=== PATIENT | male | born 1980 | race Caucasian/White ===

== ENCOUNTER → 2018-02-08 | Outpatient (CLI) | payer MEDICARE, MEDICAID ==
--- NOTE | 2018-02-08 21:41 | EKG REPORT ---
SEVERITY:- NORMAL ECG - SINUS RHYTHM : Confirmed by: Camelia Butcher MD 08-Feb-2018 21:41:01
== END ==
LOC: OD 10:26
PROVIDERS: ATTEND Physician Assistant
DX: Z79.891 Long term (current) use of opiate analgesic (principal); Z51.81 Encounter for therapeutic drug level monitoring; G89.4 Chronic pain syndrome
CPT/HCPCS: 93005; 93010

== ENCOUNTER → 2018-03-29 | Outpatient (CLI) | payer MEDICARE, MEDICAID ==
--- NOTE | 2018-03-29 12:56 | RADIOLOGY REPORT (SQ) ---
EXAM DESCRIPTION: CERV SP 6 OR MORE COMPLETED DATE/TIME: 03/29/2018 12:42 pm REASON FOR STUDY: CERVICAL/LUMBAR RADICULOPATHY M54.12 RADICULOPATHY, CERVICAL REGION M54.16 RADIC ULOPATHY, LUMBAR REGION COMPARISON: None. NUMBER OF VIEWS: Seven views. TECHNIQUE: AP, lateral, obliques, flexion, extension, and odontoid radiographic images acquired of t he cervical spine. LIMITATIONS: None. FINDINGS: MINERALIZATION: Normal. ALIGNMENT: Anatomic. FLEXION/EXTENSION: No instability. VERTEBRAE: Vertebral bodies of normal height. DISCS: Mild disc space narrowing C5-6 and C6-7. FORAMINA: No osteophytes or foraminal narrowing. LATERAL AND POSTERIOR ELEMENTS: Posterior decompression C4-T1. HARDWARE: Extensive hardware along the facets bilateral. No hardware failure. SOFT TISSUES: No masses or calcifications. Lung apices clear. OTHER: No other significant finding. IMPRESSION: Extensive postsurgical changes. Mild degenerative disc disease C5-6 and C6-7. NO INSTABILITY ON FLEXION/EXTENSION. TECHNICAL DOCUMENTATION: JOB ID: [id number]- All Rights Reserved Reading location - IP/workstation name: [email or web address]
--- NOTE | 2018-03-29 12:59 | RADIOLOGY REPORT (SQ) ---
EXAM DESCRIPTION: L SPINE W/FLEX/EXT COMPLETED DATE/TIME: 03/29/2018 12:42 pm REASON FOR STUDY: CERVICAL/LUMBAR RADICULOPATHY M54.12 RADICULOPATHY, CERVICAL REGION M54.16 RADIC ULOPATHY, LUMBAR REGION COMPARISON: None. NUMBER OF VIEWS: Seven views. TECHNIQUE: AP, lateral, obliques, flexion, extension, and sacral radiographic images acquired. LIMITATIONS: None. FINDINGS: MINERALIZATION: Normal. SEGMENTATION: Normal. No transitional anatomy. ALIGNMENT: Normal. FLEXION/EXTENSION: No instability. VERTEBRAE: Maintained height. No fracture or worrisome bone lesion. DISCS: Preserved height. No significant osteophytes or end plate irregularity. POSTERIOR ELEMENTS: Posterior decompression L4 and L5. HARDWARE: Pedicle screws and plates L4-S1. Disc prostheses L4-5 and L5-S1. PARASPINAL SOFT TISSUES: Normal. PELVIS: Intact as visualized. No fractures or worrisome bone lesions. SI joints intact. OTHER: No other significant finding. IMPRESSION: Surgical changes. NO INSTABILITY ON FLEXION/EXTENSION. TECHNICAL DOCUMENTATION: JOB ID: [id number]- All Rights Reserved Reading location - IP/workstation name: [email or web address]
--- NOTE | 2018-03-29 13:49 | RADIOLOGY REPORT (SQ) ---
EXAM DESCRIPTION: MRI CERVICAL SPINE COMBO COMPLETED DATE/TIME: 03/29/2018 12:12 pm REASON FOR STUDY: CERVICAL RADICULOPATHY, LUMBAR RADICULOPATHY M54.12 RADICULOPATHY, CERVICAL REGIO N M54.16 RADICULOPATHY, LUMBAR REGION COMPARISON: Plain radiographs TECHNIQUE: Sagittal and Axial imaging includes T1, T2, STIR and gradient echo sequences. T1 post dylan olinium sequences. CONTRAST TYPE AND DOSE: 20 mL Dotarem. RENAL FUNCTION: None required. The patient is less than 50 years old. LIMITATIONS: Olguin from metal hardware. FINDINGS: ALIGNMENT: Normal. VERTEBRAE: Intact. BONE MARROW: Normal. No marrow replacement or reactive changes. DISCS: Normal. No significant abnormal signal or loss of height. HARDWARE: Extensive posterior hardware extending from C4-T1. CORD AND BASE OF BRAIN: Normal in size and signal intensity. SOFT TISSUES: No soft tissue masses. C1-C2: No significant spinal stenosis. C2-C3: No significant spinal stenosis or exit foraminal stenosis. C3-C4: Disc osteophyte complex with mild narrowing of the exit foramina. C4-C5: No significant spinal stenosis or exit foraminal stenosis. C5-C6: No significant spinal stenosis or exit foraminal stenosis. C6-C7: No significant spinal stenosis or exit foraminal stenosis. C7-T1: No significant spinal stenosis or exit foraminal stenosis. UPPER THORACIC: There are central disc protrusions at T1-T2 and T2-T3 which appear to compress the an terior thecal sac. ENHANCEMENT: No abnormal enhancement. OTHER: No other significant finding. IMPRESSION: Extensive surgical changes. Mild narrowing of the exit foramina C3-4. Central disc protrusions at T1- 2 and T2-3 incompletely image. Appear to compress the anterior theca l sac. COMMENT: None. TECHNICAL DOCUMENTATION: JOB ID: [id number] [employer]- All Rights Reserved Reading location - IP/workstation name: [email or web address]
--- NOTE | 2018-03-29 13:53 | RADIOLOGY REPORT (SQ) ---
EXAM DESCRIPTION: MRI LUMBAR SPINE COMBO COMPLETED DATE/TIME: 03/29/2018 12:12 pm REASON FOR STUDY: CERVICAL RADICULOPATHY, LUMBAR RADICULOPATHY M54.12 RADICULOPATHY, CERVICAL REGIO N M54.16 RADICULOPATHY, LUMBAR REGION COMPARISON: None. TECHNIQUE: Sagittal and Axial imaging includes T1, T1 post gadolinium, T2, STIR and gradient echo se quences. Coronal T2/HASTE imaging. CONTRAST TYPE AND DOSE: 20 mL Dotarem. RENAL FUNCTION: None required. The patient is less than 50 years old. LIMITATIONS: None. FINDINGS: VISUALIZED UPPER ABDOMEN: Limited evaluation. No acute or suspicious findings suggested. SEGMENTATION: No transitional anatomy. The lowest well-developed disc space is labeled L5-S1. ALIGNMENT: Anatomic. VERTEBRAE: Intact. No fractures. BONE MARROW: Mild reactive endplate changes L3-4. DISC SIGNAL: Loss of T2 signal L3-4. POSTERIOR ELEMENTS: Posterior decompression L4 and L5. HARDWARE: Hardware L4-5 and S1. CORD AND CONUS: Normal in size and signal intensity. Conus at the appropriate level. SOFT TISSUES: No aortic aneurysm seen. No bulky retroperitoneal adenopathy or mass. No paraspinal mas s or fluid. L1-L2: No significant spinal stenosis or exit foraminal stenosis. L2-L3: No significant spinal stenosis or exit foraminal stenosis. L3-L4: Disc bulge with fissure L3-4. Mild narrowing of the exit foramina. L4-L5: No significant spinal stenosis or exit foraminal stenosis. L5-S1: No significant spinal stenosis or exit foraminal stenosis. LOWER THORACIC: Incompletely imaged. No stenosis seen. SACRUM: Visualized upper sacrum intact. ENHANCEMENT: No abnormal enhancement. OTHER: No other significant findings. IMPRESSION: L3-4 disc bulge with mild narrowing of the exit foramina. Hardware L4-5 and L5-S1 with posterior decompression. TECHNICAL DOCUMENTATION: JOB ID: [id number] [employer]- All Rights Reserved Reading location - IP/workstation name: [email or web address]
== END ==
LOC: RAD 10:25
PROVIDERS: ATTEND Neurological Surgery
DX: M54.12 Radiculopathy, cervical region (principal); M54.16 Radiculopathy, lumbar region
CPT/HCPCS: 72156; 72158; 72052; 72114; A9576

== ENCOUNTER → 2018-10-02 | Outpatient (CLI) | payer MEDICARE, MEDICAID ==
--- NOTE | 2018-10-02 16:21 | EKG REPORT ---
SEVERITY:- NORMAL ECG - SINUS RHYTHM : Confirmed by: Kash Bray MD 02-Oct-2018 16:20:09
== END ==
LOC: OD 14:28
PROVIDERS: ATTEND Physician Assistant
DX: Z79.891 Long term (current) use of opiate analgesic (principal)
CPT/HCPCS: 93005; 93010

== ENCOUNTER 2018-11-07 12:29 | Emergency (ER) | payer MEDICARE, MEDICAID ==
--- NOTE | 2018-11-07 13:11 | ER Document Report ---
ED Medical Screen (RME) - General Chief Complaint: Back Pain Stated Complaint: BACK PAIN Time Seen by Provider: 11/07/18 13:09 Primary Care Provider: TOMMY IBARRA PA [Primary Care Provider] - Follow up as needed Mode of Arrival: Ambulatory Information source: Patient Notes: 38-year-old male presented to ED for increase in pain to his lower back. He states he has been having problems urinating and is only urinating once or twice a day now. He states he has decreased feeling in his groin and private areas. He states he has pain from just above his waist and then he has shooting pain down both legs. He states this is been going on and off for 5 years but it is worse for the last week. He states he has been feeling lightheaded and nausea for the last week which has been increasing. He states he does have a neurologist he follows up with but he just got a little frightened due to the increase in pain and decrease in sensation. He states usually he has to get an MRI and he needs value before he can get an MRI. I will order blood work and urine and x-ray in the pit area. I have greeted and performed a rapid initial assessment of this patient. A comprehensive ED assessment and evaluation of the patient, analysis of test results and completion of medical decision making process will be conducted by an additional ED providers. TRAVEL OUTSIDE OF THE [place] IN LAST 30 DAYS: No - Related Data Allergies/Adverse Reactions: Iodine and Iodide Containing Produc Allergy (Verified 11/07/18 12:31) Physical Exam - Vital signs Vitals: Temp Pulse Resp BP Pulse Ox 98.0 F 89 16 143/69 H 97 11/07/18 12:36 11/07/18 12:36 11/07/18 12:36 11/07/18 12:36 11/07/18 12:36 Course - Vital Signs Vital signs: Temp Pulse Resp BP Pulse Ox 98.0 F 89 16 143/69 H 97 11/07/18 12:36 11/07/18 12:36 11/07/18 12:36 11/07/18 12:36 11/07/18 12:36 Doctor's Discharge - Discharge Referrals: TOMMY IBARRA PA [Primary Care Provider] - Follow up as needed
[2018-11-07 14:03] LABS: ABSOLUTE BASOPHILS # (AUTO) 0.1 10^3/uL (0.0-0.2); ABSOLUTE EOSINOPHILS # (AUTO) 0.4 10^3/uL (0.0-0.6); ABSOLUTE LYMPHOCYTES (AUTO) 2.4 10^3/uL (0.5-4.7); ABSOLUTE MONOCYTES (AUTO) 0.5 10^3/uL (0.1-1.4); ABSOLUTE NEUT (AUTO) 4.9 10^3/uL (1.7-8.2); BASOPHILS % (AUTO) 1.2 % (0-2); EOSINOPHILS % (AUTO) 4.9 % (0-6); HEMATOCRIT 43.7 % (37.9-51.0); HEMOGLOBIN 14.7 g/dL (13.5-17.0); LYMPHOCYTES % (AUTO) 28.6 % (13-45); MEAN CORPUSCULAR HEMOGLOBIN 28.4 pg (27.0-33.4); MEAN CORPUSCULAR HGB CONC 33.7 g/dL (32.0-36.0); MEAN CORPUSCULAR VOLUME 84 fl (80-97); MONOCYTES % (AUTO) 6.4 % (3-13); PLATELET COUNT 259 10^3/uL (150-450); RED BLOOD COUNT 5.18 10^6/uL (4.35-5.55); RED CELL DISTRIBUTION WIDTH 14.1 % (11.5-14.0); SEGMENTED NEUTROPHILS % (AUTO) 58.9 % (42-78); TOTAL CELLS COUNTED % (AUTO) 100 %; WHITE BLOOD COUNT 8.3 10^3/uL (4.0-10.5)
[2018-11-07 14:08] LABS: APPEARANCE,URINE CLEAR; BILIRUBIN,URINE NEGATIVE (NEGATIVE); COLOR,URINE YELLOW; GLUCOSE, URINE NEGATIVE (NEGATIVE); KETONES,URINE NEGATIVE (NEGATIVE); LEUKOCYTE ESTERASE,URINE NEGATIVE (NEGATIVE); NITRITE,URINE NEGATIVE (NEGATIVE); PROTEIN,URINE NEGATIVE (NEGATIVE); URINE SPECIFIC GRAVITY 1.021; UROBILINOGEN,URINE NEGATIVE mg/dL (<2.0)
[2018-11-07 14:20] LABS: ALBUMIN 4.5 g/dL (3.5-5.0); ALKALINE PHOSPHATASE 63 U/L (38-126); ANION GAP 10 (5-19); ASPARTATE AMINO TRANSFERASE 25 U/L (17-59); BILIRUBIN,DIRECT 0.3 mg/dL (0.0-0.4); BILIRUBIN,TOTAL 0.4 mg/dL (0.2-1.3); BLOOD UREA NITROGEN 11 mg/dL (7-20); CARBON DIOXIDE 27 mmol/L (22-30); CHLORIDE 103 mmol/L (98-107); GLUCOSE 107 mg/dL (75-110); POTASSIUM 4.3 mmol/L (3.6-5.0); TOTAL PROTEIN 7.4 g/dL (6.3-8.2)
--- NOTE | 2018-11-07 14:20 | RADIOLOGY REPORT (SQ) ---
EXAM DESCRIPTION: L SPINE WHOLE COMPLETED DATE/TIME: 11/07/2018 2:12 pm REASON FOR STUDY: increase in pain COMPARISON: 03/29/2018 NUMBER OF VIEWS: Three views. TECHNIQUE: AP, lateral and sacral radiographic images acquired of the lumbar spine. LIMITATIONS: None. FINDINGS: MINERALIZATION: Normal. SEGMENTATION: Normal. No transitional anatomy. ALIGNMENT: Normal. VERTEBRAE: Maintained height. No fracture or worrisome bone lesion. DISCS: Preserved height. No significant osteophytes or end plate irregularity. POSTERIOR ELEMENTS: Pedicles and facets are intact. No pars defect or posterior arch defects. HARDWARE: There is been posterior instrumentation at L4-L5 and S1. Hardware alignment is unchanged. PARASPINAL SOFT TISSUES: Normal. PELVIS: Intact as visualized. No fractures or worrisome bone lesions. SI joints intact. OTHER: No other significant finding. IMPRESSION: Postsurgical changes. No acute findings. TECHNICAL DOCUMENTATION: JOB ID: [id number] [employer]- All Rights Reserved Reading location - IP/workstation name: [email or web address]
[2018-11-07 14:21] LABS: URINE AMPHETAMINES SCREEN NEGATIVE; URINE BARBITURATES SCREEN NEGATIVE; URINE BENZODIAZEPINES SCREEN NEGATIVE; URINE COCAINE SCREEN NEGATIVE; URINE MARIJUANA (THC) SCREEN UNCONFIRMED POSITIVE; URINE METHADONE SCREEN NEGATIVE; URINE PHENCYCLIDINE SCREEN NEGATIVE
[2018-11-07] MEDS ORDERED: LIDOCAINE 5% (700 MG) TRANSDERMAL ADH..PATCH TP ONE (16:37)
[2018-11-07] MEDS ORDERED: CYCLOBENZAPRINE HCL 10 MG TABLET PO ONE (16:37)
[2018-11-07] MEDS ORDERED: KETOROLAC TROMETHAMINE 60 MG/2 ML SDV IM ONE (16:37)
[2018-11-07] MEDS ORDERED: LORAZEPAM INJ 2 MG/1 ML VIAL IV ONE (19:08)
--- NOTE | 2018-11-07 22:11 | RADIOLOGY REPORT (SQ) ---
EXAM DESCRIPTION: MR LUMBAR SPINE WITHOUT THEN WITH IV CONTRAST COMPLETED DATE/TME: 11/07/2018 16:57 CLINICAL HISTORY: 38 years, Male, urinary retention rectal tone/pain COMPARISON: Plain films from today's date TECHNIQUE: 243 Images stored on PACS. LIMITATIONS: None. FINDINGS: 5 lumbar type vertebral bodies, for the purposes of this exam. Vertebral body height and alignment is preserved. There is no suspicious marrow signal. Normal signal in the visualized spinal cord. The conus medullaris terminates appropriate. Susceptibility artifact limits evaluation of the L4-5 and L5-S1 levels. No definitive enhancing abnormality. No MR evidence for central canal stenosis at any level. Minor endplate degenerative changes of the lower thoracic spine. No definitive disc bulges or protrusions in the lumbar spine. IMPRESSION: Post surgical changes with associated susceptibility artifact. However no MR evidence for central canal stenosis at any level. copyright 2010 [employer]- All Rights Reserved
[2018-11-07] MEDS ORDERED: HYDROCODONE/ACETAMINOPHEN 10-325 MG TABLET PO ONE (22:39)
--- NOTE | 2018-11-07 22:46 | ER Document Report ---
ED General - General Chief Complaint: Back Pain Stated Complaint: BACK PAIN Time Seen by Provider: 11/07/18 13:09 Primary Care Provider: TOMMY IBARRA PA [PHYSICIAN FREIGHT ELEVATOR OPERATOR] - Follow up as needed Mode of Arrival: Ambulatory Notes: RME NOTE: 38-year-old male presented to ED for increase in pain to his lower back. He states he has been having problems urinating and is only urinating once or twice a day now. He states he has decreased feeling in his groin and private areas. He states he has pain from just above his waist and then he has shooting pain down both legs. He states this is been going on and off for 5 years but it is worse for the last week. He states he has been feeling lightheaded and nausea for the last week which has been increasing. He states he does have a neurol ogist he follows up with but he just got a little frightened due to the increase in pain and decrease in sensation. He states usually he has to get an MRI and he needs value before he can get an MRI. I will order blood work and urine and x-ray in the pit area. MY HPI: Patient noted approximately week and a half ago he did stand up and twisted his back. States he noticed immediate pain in his lower back but states he has had a spinal stenosis degenerative disc disease and multiple surgeries so he was trying to deal with it at home with gabapentin and methadone. Patient states in the last 2 days he noticed that he feels like his urinary retention. States he does not feel as though he has to go to the bathroom but then when he goes into the bathroom and tries only a small amount comes out. Patient is denying any dysuria. Patient's denying any history of IV drug use. Patient's denying any numbness or tingling in any extremity. States just generalized lower back pain. Past medical history: Hypertension, degenerative disc disease, spinal stenosis Medications: Lisinopril, HCTZ, gabapentin, Skelaxin Allergies: Iodine patient states his Neurosurgeon is Dr. Mares TRAVEL OUTSIDE OF THE [place] IN LAST 30 DAYS: No - Related Data Allergies/Adverse Reactions: Iodine and Iodide Containing Produc Allergy (Verified 11/07/18 12:31) Past Medical History - General Information source: Patient - Social History Smoking Status: Never Smoker Frequency of alcohol use: None Drug Abuse: None Family History: Reviewed & Not Pertinent Patient has suicidal ideation: No Patient has homicidal ideation: No - Past Medical History Cardiac Medical History: Reports: Hx Hypertension Renal/ Medical History: Denies: Hx Peritoneal Dialysis Past Surgical History: Reports: Hx Orthopedic Surgery - back surgery x 3, Hx Tonsillectomy Review of Systems - Review of Systems Constitutional: denies: Fever EENT: No symptoms reported Cardiovascular: No symptoms reported Respiratory: No symptoms reported Gastrointestinal: No symptoms reported Genitourinary: See HPI Male Genitourinary: No symptoms reported Musculoskeletal: See HPI Skin: No symptoms reported Hematologic/Lymphatic: No symptoms reported Neurological/Psychological: See HPI Physical Exam - Vital signs Vitals: Temp Pulse Resp BP Pulse Ox 98.0 F 89 16 143/69 H 97 11/07/18 12:36 11/07/18 12:36 11/07/18 12:36 11/07/18 12:36 11/07/18 12:36 - Notes Notes: GENERAL: Alert, interacts well. No acute distress. HEAD: Normocephalic, atraumatic. EYES: Pupils equal, round, and reactive to light. Extraocular movements intact. ENT: Oral mucosa moist, tongue midline. NECK: Full range of motion. Supple. Trachea midline. LUNGS: Clear to auscultation bilaterally, no wheezes, rales, or rhonchi. No respiratory distress. HEART: Regular rate and rhythm. No murmur ABDOMEN: Soft, non-tender. Non-distended. Bowel sounds present in all 4 quadrants. EXTREMITIES: Moves all 4 extremities spontaneously. No edema, normal radial and dorsalis pedis pulses bilaterally. No cyanosis. 5 out of 5 strength noted all 4 extremities. BACK: no cervical, thoracic midline tenderness. No saddle anesthesia, normal distal neurovascular exam. Generalized lumbar midline tenderness rating bilateral paraspinal. NEUROLOGICAL: Alert and oriented x3. Normal speech. cranial nerves II through XII grossly intact. PSYCH: Normal affect, normal mood. SKIN: Warm, dry, normal turgor. No rashes or lesions noted. Rectal exam: [employer] JAIRO PCT reveals no rectal tone. Course - Re-evaluation Re-evalutation: Based on patient's initial complaint on questionable urinary retention and his physical exam which showed no rectal tone I have ordered an MRI at this time. MRI is as follows Lumbar Spine X-Ray 11/07/18 13:12 IMPRESSION: Postsurgical changes. No acute findings. Lumbar Spine MRI 11/07/18 16:57 IMPRESSION: Post surgical changes with associated susceptibility artifact. However no MR evidence for central canal stenosis at any level. copyright 2011 [employer]- All Rights Reserved I discussed this case with my attending Dr. Kat. She is also reviewed patient's MRI. We have discussed following up closely with patient's neurosurgeon Dr. Mares. We discussed use of a short course of narcotics and Flexeril. Discussed any changes in patient condition he should return to the emergency room. Patient voices he does have a appointment with his neurosurgeon on Saturday. - Vital Signs Vital signs: Temp Pulse Resp BP Pulse Ox 97.9 F 63 16 107/53 L 99 11/07/18 17:14 11/07/18 17:14 11/07/18 17:14 11/07/18 17:14 11/07/18 17:14 - Laboratory Result Diagrams: 11/07/18 13:45 11/07/18 13:45 Laboratory results interpreted by me: 11/07/18 13:45 RDW 14.1 H Discharge - Discharge Clinical Impression: Lumbar back pain Condition: Stable Disposition: HOME, SELF-CARE Instructions: Low Back Pain ([facility]) Additional Instructions: As we discussed you have been seen and treated in the emergency department for your lower back pain. Your MRI reveals no signs of emergency pathology. It is my recommendation that you take medications as prescribed and follow-up with your neurosurgeon at your earliest convenience. Please also make sure you return to the emergency department should you have any further concerns. Prescriptions: Cyclobenzaprine HCl [Flexeril 10 mg Tablet] 10 mg PO TIDP PRN #15 tab PRN Reason: Hydrocodone/Acetaminophen [Dexter 10-325 mg Tablet] 1 tab PO Q6 PRN #12 tablet PRN Reason: Forms: Return to Work Referrals: TOMMY IBARRA PA [PHYSICIAN FREIGHT ELEVATOR OPERATOR] - Follow up as needed
[2018-11-07 23:00] VITALS: BP 120/78
== END 2018-11-07 23:00 | disposition home or self-care (01) ==
LOC: ER 12:29
DX: M54.5 Low back pain (principal); M54.9 Dorsalgia, unspecified; M79.604 Pain in right leg; M79.605 Pain in left leg; R42 Dizziness and giddiness; R11.0 Nausea; X50.1XXA Overexertion from prolonged static or awkward postures, initial encounter; I10 Essential (primary) hypertension; Z79.899 Other long term (current) drug therapy
CPT/HCPCS: 99284; 96372; 96374; 36415; 85025; 80053; 81001; 80307; 72158; 72110; A9576; A9270 ×2; J1885; J2060